=== PATIENT | male | born 1995 | race Caucasian/White ===

== ENCOUNTER 2018-02-07 21:00 | Emergency (ER) | payer OTHER ==
[2018-02-07] MEDS ORDERED: Adacel (T-DAP) 0.5 ML VIAL ONE (21:38)
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
[2018-02-07] MEDS ORDERED: Bacitracin Zinc 1 Packet ONE (23:06)
--- NOTE | 2018-02-07 23:39 | CT ---
CT OF THE PELVIS WITHOUT IV CONTRAST: Indication: Possible femoral neck fracture of the left hip. Comparison: Left hip radiograph performed at 8:53 p.m. FINDINGS: The irregularity seen involving the inferior femoral head and neck junction is related to healed defo rmity from a prior operative fixation and trauma to the left proximal femur. There is some lucency wi th ground glass opacity within the proximal left femur which may reflect sequellae of prior trauma. A fibro osseous lesion within the proximal left femur cannot be entirely excluded. No definite acute f racture is seen involving the left proximal femur. There is a mildly displaced comminuted left superi or pubic ramus fracture. There is a nondisplaced left inferior pubic ramus fracture. The proximal rig ht femur appears within normal limits. The right obturator ring appears intact. The sacrum appears wi thin normal limits. There are bilateral pars defects at L5 with grade I anterolisthesis. No free flui d is evident within the pelvis. IMPRESSION: 1. Left obturator ring fractures. 2. Healed deformity involving the proximal left femur is the cause of the abnormality seen on the rad iographs. No acute fracture seen involving the left proximal femur. 3. Bilateral pars defects at L5, grade I anterolisthesis. POS: [facility]
[2018-02-07] MEDS ORDERED: HYDROcodone/Acetaminophen 10/325 mg Tablet ONE (23:43)
== END 2018-02-07 23:55 | disposition home or self-care (01) ==
LOC: ERS 21:00
DX: S32.592A Other specified fracture of left pubis, initial encounter for closed fracture (principal); F32.9 Major depressive disorder, single episode, unspecified; Z79.899 Other long term (current) drug therapy; W20.8XXA Other cause of strike by thrown, projected or falling object, initial encounter
CPT/HCPCS: 72170; 72192; 90471; 90715